=== PATIENT | male | born 1955 | race Caucasian/White ===

== ENCOUNTER → 2019-06-08 16:23 | Outpatient (CLI) | payer OTHER, SELFPAY ==
--- NOTE | 2019-06-08 16:29 | DI.RAD.S_ITS ---
PROCEDURE: XR WRIST RT MIN 3V INDICATIONS: pain, swelling, r/o bony abnormality TECHNIQUE: 4 views of the wrist were acquired. COMPARISON: [facility], CR, XR FOREARM RT 2V, 06/08/2019, 16:29. FINDINGS: Bones: There are no fractures of the distal radius and distal ulna, including an unfused ulnar styloid fracture. Along the dorsal aspect of the carpus, fracture fragments are seen, which may be related to the ulnar styloid fracture. No acute appearing fractures or dislocations. No suspicious bony lesions. Scaphoid view: No navicular fractures are seen. Soft tissues: No suspicious soft tissue calcifications. IMPRESSION: No acute appearing fractures are seen. If there is snuffbox tenderness (or other clinical suspicion for a fracture not seen on these images) then a repeat examination would be recommended in 10 to 14 days, following splinting. Remote fractures of the distal radius and distal ulna, with an unfused ulnar styloid fracture. Dictated by: Donavon Castaneda M.D. on 06/08/2019 at 15:54 Approved by: Donavon Castaneda M.D. on 06/08/2019 at 15:55
--- NOTE | 2019-06-08 16:29 | DI.RAD.S_ITS ---
PROCEDURE: XR FOREARM RT 2V INDICATIONS: pain, swelling, r/o bony abnormality TECHNIQUE: 2 views of the forearm were acquired. COMPARISON: [facility], CR, XR WRIST RT MIN 3V, 06/08/2019, 16:29. FINDINGS: Bones: Remote appearing fractures can be seen involving the distal radius and the ulnar styloid. There is an unfused ulnar styloid fracture. No acute appearing fractures or dislocations. No suspicious bony lesions. Soft tissues: No suspicious soft tissue calcifications or masses. IMPRESSION: No acute abnormalities are seen. Remote fractures of the distal radius and distal ulna, with an unfused ulnar styloid fracture. Dictated by: Donavon Castaneda M.D. on 06/08/2019 at 15:52 Approved by: Donavon Castaneda M.D. on 06/08/2019 at 15:54
== END ==
PROVIDERS: PCP Nurse Practitioner Family; Visit Provider Physician Assistant
DX: S69.91XA Unspecified injury of right wrist, hand and finger(s), initial encounter (principal); M79.631 Pain in right forearm; M79.89 Other specified soft tissue disorders; X58.XXXA Exposure to other specified factors, initial encounter
CPT/HCPCS: 73090; 73110